=== PATIENT | female | born 1960 | race Caucasian/White ===

== ENCOUNTER 2023-08-27 07:49 | Day surgery (SDC) | payer OTHER ==
[2023-08-24 12:04] VITALS: BMI 35.2
[2023-08-27 09:34] VITALS: TEMP 97.8
[2023-08-27 09:55] VITALS: BP 120/81; PULSE 87; RESP 18
== END 2023-08-27 10:25 | disposition home or self-care (01) ==
LOC: JASU-ENDO 07:49
PROVIDERS: ATTEND Internal Medicine Gastroenterology
PROC: 0DB98ZX Excision of Duodenum, Via Natural or Artificial Opening Endoscopic, Diagnostic (ICD-10-PCS; 2023-08-27)
PROC: 0DB68ZX Excision of Stomach, Via Natural or Artificial Opening Endoscopic, Diagnostic (ICD-10-PCS; 2023-08-27)
PROC: 0DB48ZX Excision of Esophagogastric Junction, Via Natural or Artificial Opening Endoscopic, Diagnostic (ICD-10-PCS; 2023-08-27)
PROC: 0DJD8ZZ Inspection of Lower Intestinal Tract, Via Natural or Artificial Opening Endoscopic (ICD-10-PCS; principal; 2023-08-27 09:10)
DX: Z12.11 Encounter for screening for malignant neoplasm of colon (principal); K64.1 Second degree hemorrhoids; K64.8 Other hemorrhoids; K57.30 Diverticulosis of large intestine without perforation or abscess without bleeding; K29.50 Unspecified chronic gastritis without bleeding; K20.90 Esophagitis, unspecified without bleeding; D50.9 Iron deficiency anemia, unspecified; Z80.0 Family history of malignant neoplasm of digestive organs
CPT/HCPCS: 82962; 88305-TC; 88342-TC